=== PATIENT | female | born 1995 | race African-American/Black ===

== ENCOUNTER 2017-05-27 18:40 | Inpatient (IN) ==
[2017-05-27] MEDS ORDERED: MEPERIDINE 50 MG/1 ML VIAL IV PRN (19:45)
[2017-05-27] MEDS ORDERED: ONDANSETRON 4 MG/2 ML VIAL IV PRN (19:45)
[2017-05-27] MEDS: LACTATED RINGERS 1,000 ML IV SCH ×2 (20:07→21:46)
[2017-05-27] MEDS: AMPICILLIN INJ 2,000 MG in SODIUM CHLORIDE 0.9% 50 ML IV SCH (21:06)
[2017-05-27] MEDS ORDERED: hydrOXYzine HCL 25 MG/1 ML VIAL IM PRN (21:19)
[2017-05-27] MEDS ORDERED: PROMETHAZINE 25 MG/1 ML VIAL IM PRN (21:19)
[2017-05-27] MEDS ORDERED: diphenhydrAMINE 50 MG/1 ML VIAL IV PRN ×2 (21:19)
[2017-05-27] MEDS ORDERED: ePHEDrine 50 MG/ML AMP IV PRN (21:19)
[2017-05-27] MEDS ORDERED: fentaNYL 2 MCG/ROPIV 0.2% EPID 150 ML EPIDURAL PRN (21:19)
[2017-05-27] MEDS ORDERED: FAMOTIDINE 20 MG/2 ML VIAL IV PRN (21:21)
[2017-05-27] MEDS ORDERED: CITRIC ACID/SODIUM CITRATE 30 ML UDCUP PO PRN (21:21)
[2017-05-27 21:31] LABS: Basophils % 0.5 % (0.0-0.8); Eosinophils # 0.1 10*3/uL (0.0-0.87); Eosinophils % 0.9 % (0.00-10.9); Hematocrit 40.1 VOL% (35.7-47.0); Hemoglobin 13.3 GM/DL (12.0-16.0); Immature Granulocytes % 0.4 %; Immature Granulocytes Absolute 0.03 #; Lymphocytes # 2.2 10*3/uL (1.4-4.0); Lymphocytes % 25.7 % (21.3-54.2); Mean Corpuscular HGB Conc 33.2 GM/DL (32-36); Mean Corpuscular Hemoglobin 28 PG (27-34); Mean Corpuscular Volume 85.7 FL (87-102); Mean Platelet Volume 11.5 FL (9.6-12.0); Monocytes # 0.7 10*3/uL (0.11-0.8); Monocytes % 7.7 % (1.7-12.7); Neutrophils # 5.5 10*3/uL (1.4-7.4); Neutrophils % 64.8 % (38.7-73.9); Platelet Count 210 T/CUMM (130-400); Red Blood Count 4.68 MC/CUMM (3.8-5.5); Red Cell Distribution Width 15.1 % (9.3-17.3); White Blood Count 8.5 T/CUMM (4-12)
[2017-05-27 21:55] LABS: Alanine Aminotransferase 37 U/L (13-56); Albumin 3.3 G/DL (3.4-5.0); Alkaline Phosphatase 181 U/L (45-117); Aspartate Amino Transferase 17 U/L (0-37); Bilirubin,Total < 0.39 MG/DL (0.2-1.0); Blood Urea Nitrogen 6 MG/DL (7-18); Calcium 9.6 MG/DL (8.5-10.1); Glucose 66 MG/DL (74-106); Osmolality,Calculated 270.7 MOS/KG (273-304); Potassium 3.3 MMOL/L (3.5-5.1); Sodium 138 MMOL/L (136-145); Total Protein 8.3 G/DL (6.4-8.3)
[2017-05-28] MEDS: LACTATED RINGERS 1,000 ML IV SCH ×2 (01:45→05:39)
[2017-05-28] MEDS: AMPICILLIN INJ 2,000 MG in SODIUM CHLORIDE 0.9% 50 ML IV SCH (03:19)
[2017-05-28 04:44] LABS: Apearance,Urine CLEAR (Clear); Bilirubin,Urine Negative (Negative); Blood, Urine Negative (Negative); Glucose,Urine (UA) Negative (Negative); Ketones,Urine 20 mg/dL (Negative); Mucus,Urine Occasional /LPF (Occasional); Nitrite,Urine Negative (Negative); Protein,Urine 30 MG/DL; RBC,Urine <1 /HPF (0-4); Squamous Epithelial Cell,Urine Occasional /HPF (0-10); Urine Color Yellow (Yellow); Urine Specific Gravity 1.029 (1.001-1.035); WBC,Urine 1 /HPF (0-6)
[2017-05-28] MEDS ORDERED: miSOPROStol 200 MCG TABLET ONE (07:56)
[2017-05-28] MEDS ORDERED: OXYTOCIN/LR 20 UNIT/1,000 ML BAG IV ONE (07:56)
[2017-05-28] MEDS ORDERED: LIDOCAINE 1% 50 ML VIAL ONE (07:56)
[2017-05-28 09:02] LABS: Cord Arterial Blood HCO3 24.7 MMOL/L
[2017-05-28 09:05] LABS: Cord Venous Blood HCO3 22.2 MMOL/L; Cord Venous Blood PCO2 50.6 MMHG; Cord Venous Blood PO2 17.6
[2017-05-28] MEDS ORDERED: oxyCODONE/ACETAMINOPHEN 5-325 MG TABLET PO PRN ×3 (11:05→15:21)
[2017-05-28] MEDS ORDERED: IBUPROFEN 800 MG TABLET PO PRN (11:05)
[2017-05-28] MEDS ORDERED: ACETAMINOPHEN 325 MG TABLET PO PRN (15:12)
[2017-05-28] MEDS ORDERED: MEASLES/MUMPS/RUBELLA VACCINE 0.5 ML VIAL SUBCUT ONE (15:12)
[2017-05-28] MEDS ORDERED: BISACODYL 10 MG SUPP RECTAL PRN (15:12)
[2017-05-28] MEDS ORDERED: RHO(D) IMMUNE GLOBULIN 300 MCG SYRINGE IM ONE (15:12)
[2017-05-28] MEDS ORDERED: ACETAMINOPHEN/CODEINE 300-30 MG TABLET PO PRN (15:12)
[2017-05-28] MEDS ORDERED: DIPH/TET/ACEL PERT BOOSTER VACCINE 0.5 ML VIAL IM ONE (15:12)
[2017-05-28] MEDS ORDERED: WITCH HAZEL PADS 100/JAR TOP PRN (15:12)
[2017-05-28] MEDS ORDERED: BENZOCAINE 20%/MENTHOL 0.5% SPRAY 56 GM CAN TOP PRN (15:12)
[2017-05-28] MEDS ORDERED: HYDROCORTISONE 2.5% RECTAL CREAM 30 GM TUBE TOP PRN (15:12)
[2017-05-28] MEDS ORDERED: LANOLIN 50% CREAM 0.3 OZ TUBE TOP PRN (15:12)
[2017-05-28] MEDS: oxyCODONE/ACETAMINOPHEN 5-325 MG TABLET PO PRN ×2 (15:40→20:03)
[2017-05-28] MEDS: DOCUSATE SODIUM 100 MG CAPSULE PO SCH (20:03)
[2017-05-28] MEDS: IBUPROFEN 800 MG TABLET PO PRN (21:36)
[2017-05-29] MEDS: oxyCODONE/ACETAMINOPHEN 5-325 MG TABLET PO PRN ×2 (03:36→12:53)
[2017-05-29] MEDS: IBUPROFEN 800 MG TABLET PO PRN ×2 (06:14→14:04)
[2017-05-29 06:16] LABS: Basophils % 0.4 % (0.0-0.8); Eosinophils # 0.2 10*3/uL (0.0-0.87); Eosinophils % 1.6 % (0.00-10.9); Hematocrit 30.3 VOL% (35.7-47.0); Hemoglobin 9.9 GM/DL (12.0-16.0); Immature Granulocytes % 0.4 %; Immature Granulocytes Absolute 0.04 #; Lymphocytes # 2.8 10*3/uL (1.4-4.0); Lymphocytes % 26.8 % (21.3-54.2); Mean Corpuscular HGB Conc 32.7 GM/DL (32-36); Mean Corpuscular Hemoglobin 28 PG (27-34); Mean Corpuscular Volume 85.8 FL (87-102); Mean Platelet Volume 11.6 FL (9.6-12.0); Monocytes # 0.8 10*3/uL (0.11-0.8); Neutrophils # 6.6 10*3/uL (1.4-7.4); Neutrophils % 62.8 % (38.7-73.9); Platelet Count 144 T/CUMM (130-400); Red Blood Count 3.53 MC/CUMM (3.8-5.5); Red Cell Distribution Width 15.1 % (9.3-17.3); White Blood Count 10.5 T/CUMM (4-12)
[2017-05-29] MEDS: DOCUSATE SODIUM 100 MG CAPSULE PO SCH ×2 (09:37→21:17)
[2017-05-30] MEDS: IBUPROFEN 800 MG TABLET PO PRN (02:59)
[2017-05-30 08:19] VITALS: BP 128/74
[2017-05-30] MEDS: DOCUSATE SODIUM 100 MG CAPSULE PO SCH (08:45)
[2017-05-30] MEDS: oxyCODONE/ACETAMINOPHEN 5-325 MG TABLET PO PRN (08:45)
[2017-05-30] MEDS ORDERED: INFLUENZA VIRUS VACCINE 0.5 ML SYRINGE IM ONE (10:20)
== END 2017-05-30 11:45 | disposition home or self-care (01) | DRG 560 ==
LOC: N.LDOUT 18:40 → N.LD 18:42 → N.OB 05-28 10:38
PROVIDERS: ADMIT Obstetrics & Gynecology; ATTEND Obstetrics & Gynecology

== ENCOUNTER 2019-07-13 18:32 | Inpatient (IN) ==
[2019-07-13 19:48] LABS: Apearance,Urine Slightly Hazy (Clear); Bilirubin,Urine Negative (Negative); Blood, Urine Negative (Negative); Glucose,Urine (UA) Negative (Negative); Ketones,Urine Negative (Negative); Mucus,Urine Occasional /LPF (Occasional); Nitrite,Urine Negative (Negative); Protein,Urine Negative; RBC,Urine 2 /HPF (0-4); Squamous Epithelial Cell,Urine Few /HPF (0-10); Urine Color Yellow (Yellow); Urine Specific Gravity 1.027 (1.001-1.035); WBC,Urine 35 /HPF (0-6)
[2019-07-13] MEDS ORDERED: ONDANSETRON 4 MG/2 ML VIAL IV PRN (19:52)
[2019-07-13] MEDS ORDERED: MEPERIDINE 50 MG/1 ML VIAL IV PRN (19:52)
[2019-07-13] MEDS ORDERED: diphenhydrAMINE 50 MG/1 ML VIAL IV PRN ×2 (19:53)
[2019-07-13] MEDS ORDERED: FAMOTIDINE 20 MG/2 ML VIAL IV ONE (19:53)
[2019-07-13] MEDS ORDERED: CITRIC ACID/SODIUM CITRATE 30 ML UDCUP PO ONE (19:53)
[2019-07-13] MEDS ORDERED: NALOXONE 0.4 MG/ML VIAL IV PRN (19:53)
[2019-07-13] MEDS ORDERED: LACTATED RINGERS 1,000 ML IV ONE (19:53)
[2019-07-13] MEDS ORDERED: hydrOXYzine HCL 25 MG/1 ML VIAL IM PRN (19:53)
[2019-07-13] MEDS ORDERED: PROMETHAZINE 25 MG/1 ML VIAL IM ONE (19:53)
[2019-07-13] MEDS ORDERED: OXYTOCIN/LR 20 UNIT/1,000 ML BAG IV SCH (20:00)
[2019-07-13] MEDS ORDERED: fentaNYL 2 MCG/ROPIV 0.2% EPID 100 ML EPIDURAL SCH (20:00)
[2019-07-13 20:18] LABS: Basophils % 0.4 % (0.0-0.8); Eosinophils # 0.1 10*3/uL (0.0-0.87); Eosinophils % 1.2 % (0.00-10.9); Hematocrit 33.3 VOL% (35.7-47.0); Hemoglobin 10.9 GM/DL (12.0-16.0); Immature Granulocytes % 0.3 %; Immature Granulocytes Absolute 0.02 #; Lymphocytes # 2.1 10*3/uL (1.4-4.0); Lymphocytes % 28.4 % (21.3-54.2); Mean Corpuscular HGB Conc 32.7 GM/DL (32-36); Mean Corpuscular Volume 91.5 FL (87-102); Mean Platelet Volume 10.7 FL (9.6-12.0); Neutrophils % 61.7 % (38.7-73.9); Platelet Count 187 T/CUMM (130-400); Red Blood Count 3.64 MC/CUMM (3.8-5.5); Red Cell Distribution Width 14.6 % (9.3-17.3); White Blood Count 7.5 T/CUMM (4-12)
[2019-07-13 20:34] LABS: Alanine Aminotransferase 20 U/L (13-56); Albumin 2.8 G/DL (3.4-5.0); Alkaline Phosphatase 208 U/L (45-117); Aspartate Amino Transferase 13 U/L (0-37); Bilirubin,Total < 0.39 MG/DL (0.2-1.0); Blood Urea Nitrogen 10 MG/DL (7-18); Calcium 8.4 MG/DL (8.5-10.1); Estimated Glom Filtration Rate 188 ML/MIN; Glucose 90 MG/DL (74-106); Osmolality,Calculated 273.7 MOS/KG (273-304); Total Protein 6.9 G/DL (6.4-8.3); Uric Acid 3.5 MG/DL (2.6-6.0)
[2019-07-13] MEDS: LACTATED RINGERS 1,000 ML IV SCH ×3 (21:12→23:00)
[2019-07-13] MEDS: ePHEDrine 50 MG/ML AMP IV PRN ×3 (21:41→21:53)
[2019-07-13] MEDS ORDERED: TRANEXAMIC ACID 1,000 MG/10 ML VIAL ONE (22:05)
[2019-07-13] MEDS ORDERED: miSOPROStoL 200 MCG TABLET ONE (22:05)
[2019-07-13] MEDS ORDERED: METHYLERGONOVINE 0.2 MG/1 ML AMP ONE (22:06)
[2019-07-13] MEDS ORDERED: CARBOPROST TROMETHAMINE 250 MCG/ML AMP IM ONE (22:06)
[2019-07-13] MEDS ORDERED: SODIUM CHLORIDE 0.9% 100 ML IV ONE (23:39)
[2019-07-13 23:46] LABS: Apearance,Urine CLEAR (Clear); Bilirubin,Urine Negative (Negative); Blood, Urine Negative (Negative); Glucose,Urine (UA) Negative (Negative); Ketones,Urine Negative (Negative); Mucus,Urine Occasional /LPF (Occasional); Nitrite,Urine Negative (Negative); Protein,Urine Negative; RBC,Urine 1 /HPF (0-4); Squamous Epithelial Cell,Urine Occasional /HPF (0-10); Urine Color Yellow (Yellow); Urine Specific Gravity 1.015 (1.001-1.035); Urine Urobilinogen < 2.0 EU/DL (0.2-1.0); WBC,Urine 1 /HPF (0-6)
[2019-07-14 01:07] LABS: Cord Arterial Blood HCO3 21.7 MMOL/L
[2019-07-14 01:12] LABS: Cord Venous Blood HCO3 23.2 MMOL/L; Cord Venous Blood PCO2 44.7 MMHG; Cord Venous Blood PO2 28.4
[2019-07-14] MEDS ORDERED: OXYTOCIN/LR 20 UNIT/1,000 ML BAG IV ONE ×2 (02:51→03:15)
[2019-07-14] MEDS ORDERED: ACETAMINOPHEN 325 MG TABLET PO PRN (03:15)
[2019-07-14] MEDS ORDERED: LANOLIN 50% CREAM 0.3 OZ TUBE TOP PRN (03:15)
[2019-07-14] MEDS ORDERED: BENZOCAINE 20%/MENTHOL 0.5% SPRAY 56 GM CAN TOP PRN (03:15)
[2019-07-14] MEDS ORDERED: RHO(D) IMMUNE GLOBULIN 300 MCG SYRINGE IM ONE (03:15)
[2019-07-14] MEDS ORDERED: WITCH HAZEL PADS 100/JAR TOP PRN (03:15)
[2019-07-14] MEDS ORDERED: HYDROCORTISONE 2.5% RECTAL CREAM 30 GM TUBE TOP PRN (03:15)
[2019-07-14] MEDS ORDERED: DIPH/TET/ACEL PERT BOOSTER VACCINE 0.5 ML VIAL IM ONE (03:15)
[2019-07-14] MEDS ORDERED: BISACODYL 10 MG SUPP RECTAL PRN (03:15)
[2019-07-14] MEDS ORDERED: MEASLES/MUMPS/RUBELLA VACCINE 0.5 ML VIAL SUBCUT ONE (03:15)
[2019-07-14] MEDS ORDERED: diphenhydrAMINE 50 MG/1 ML VIAL IV PRN (03:16)
[2019-07-14 04:35] LABS: Hepatitis B Surface Ag Quant < 0.10 Index; Hepatitis B Surface Ag Result Negative (Negative)
[2019-07-14 05:48] LABS: Basophils % 0.5 % (0.0-0.8); Eosinophils # 0.1 10*3/uL (0.0-0.87); Eosinophils % 0.9 % (0.00-10.9); Hematocrit 28.5 VOL% (35.7-47.0); Hemoglobin 9.3 GM/DL (12.0-16.0); Immature Granulocytes % 0.4 %; Immature Granulocytes Absolute 0.03 #; Lymphocytes # 2.3 10*3/uL (1.4-4.0); Lymphocytes % 27.2 % (21.3-54.2); Mean Corpuscular HGB Conc 32.6 GM/DL (32-36); Mean Corpuscular Volume 90.5 FL (87-102); Mean Platelet Volume 11.1 FL (9.6-12.0); Monocytes % 6.9 % (1.7-12.7); Neutrophils % 64.1 % (38.7-73.9); Platelet Count 156 T/CUMM (130-400); Red Blood Count 3.15 MC/CUMM (3.8-5.5); Red Cell Distribution Width 14.6 % (9.3-17.3); White Blood Count 8.6 T/CUMM (4-12)
[2019-07-14] MEDS: IBUPROFEN 800 MG TABLET PO PRN ×2 (07:45→15:30)
[2019-07-14] MEDS: DOCUSATE SODIUM 100 MG CAPSULE PO SCH ×2 (08:48→21:53)
[2019-07-14] MEDS: oxyCODONE/ACETAMINOPHEN 5-325 MG TABLET PO PRN ×3 (08:50→21:53)
[2019-07-14] MEDS ORDERED: diphenhydrAMINE CAP 25 MG CAPSULE PO PRN (23:24)
[2019-07-15] MEDS: DOCUSATE SODIUM 100 MG CAPSULE PO SCH (08:49)
[2019-07-15 08:51] VITALS: BP 125/59
[2019-07-15] MEDS: oxyCODONE/ACETAMINOPHEN 5-325 MG TABLET PO PRN (11:04)
[2019-07-15] MEDS: IBUPROFEN 800 MG TABLET PO PRN (11:04)
== END 2019-07-15 15:29 | disposition home or self-care (01) | DRG 560 ==
LOC: N.LDOUT 18:32 → N.LD 18:34 → N.OB 07-14 03:14
PROVIDERS: ADMIT Obstetrics & Gynecology; ATTEND Obstetrics & Gynecology